=== PATIENT | male | born 1975 | race Hispanic/Latino ===

== ENCOUNTER 2022-03-04 11:20 | Emergency (ER) | payer OTHER ==
[~2022-03-04] VITALS: Ht 167.6 cm; Wt 77.1 kg
[2022-03-04] MEDS ORDERED: DIAZEPAM 5 MG TABLET PO ONE (12:30)
[2022-03-04] MEDS ORDERED: KETOROLAC 30MG VIAL (30MG/ML) IVP ONE (12:30)
[2022-03-04] MEDS ORDERED: HYDROCODONE/ACETAMINOPHEN 10/325 MG TAB PO ONE (12:30)
[2022-03-04] MEDS ORDERED: CYCL10TA16 PO (13:20)
[2022-03-04] MEDS ORDERED: NAPR-1180 PO (13:20)
[2022-03-04 13:23] VITALS: BP 147/88
== END 2022-03-04 13:58 | disposition home or self-care (01) ==
LOC: EDH 11:20
DX: S39.012A Strain of muscle, fascia and tendon of lower back, initial encounter (principal); X58.XXXA Exposure to other specified factors, initial encounter; Y93.89 Activity, other specified; Y92.89 Other specified places as the place of occurrence of the external cause; Y99.8 Other external cause status
CPT/HCPCS: 72131; 96374; 99284; J1885